=== PATIENT | female | born 1945 | race Caucasian/White ===

== ENCOUNTER 2016-07-07 19:45 | Emergency (ER) | payer BC, OTHER ==
[~2016-07-07] VITALS: Ht 162.6 cm; Wt 60.0 kg
[2016-07-07 20:16] VITALS: BP 129/78; PULSE 81; RESP 16; TEMP 97.7; O2SAT 98
[2016-07-07] MEDS ORDERED: SODIUM CHLORIDE 0.9% FLUSH 10 ML FLUSH IVF PRN (20:30)
[2016-07-07] MEDS ORDERED: SODIUM CHLOR 0.9% 1000 ML INJ 1,000 ML IV ONE (20:30)
[2016-07-07] MEDS ORDERED: OXYC-396 PO (20:40)
[2016-07-07] MEDS ORDERED: OXYM10TA5 PO (20:42)
[2016-07-07 20:51] LABS: AMPHETAMINE, URINE NEG (NEG); BARBITURATES, URINE NEG (NEG); COCAINE, URINE NEG (NEG)
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
[2016-07-07 20:58] LABS: AUTOMATED NEUTROPHIL # 2.9 TH/MM3 (1.8-7.7); BASOPHIL % 0.8 % (0.0-2.0); EOSINOPHIL % 0.6 % (0.0-4.0); HEMATOCRIT 40.2 % (35.0-46.0); HEMO FLAGS DIFF FINAL; LYMPH % 34.4 % (9.0-44.0); LYMPHOCYTE # 1.8 TH/MM3 (1.0-4.8); MEAN CELL VOLUME 90.2 FL (80.0-100.0); MEAN CORPUSCULAR HGB CONC 33.2 % (32.0-36.0); MONO % 10.1 % (0.0-8.0); NEUT % 54.1 % (16.0-70.0); PLATELET COUNT 231 TH/MM3 (150-450); RED BLOOD COUNT 4.46 MIL/MM3 (4.00-5.30); RED CELL DISTRIBUTION WIDTH 12.9 % (11.6-17.2); WHITE BLOOD COUNT 5.3 TH/MM3 (4.0-11.0)
[2016-07-07 21:12] LABS: ACETAMINOPHEN 2.6 MCG/ML (10.0-30.0); ALKALINE PHOSPHATASE 70 U/L (45-117); ALT (GPT) 30 U/L (10-53); ANION GAP 13 MEQ/L (5-15); AST (GOT) 33 U/L (15-37); BICARBONATE 23.5 MEQ/L (21.0-32.0); BLOOD UREA NITROGEN 15 MG/DL (7-18); CHLORIDE 100 MEQ/L (98-107); GLOMERULAR FILTRATION RATE 99 ML/MIN (>89); POTASSIUM 4.1 MEQ/L (3.5-5.1); SODIUM (NA) 136 MEQ/L (136-145); TOTAL BILIRUBIN ADULT 0.4 MG/DL (0.2-1.0)
[2016-07-07 22:20] VITALS: BP 120/76; PULSE 78; RESP 18; TEMP 98.3; O2SAT 97
[2016-07-07] MEDS ORDERED: LORazepam 2 MG/ML VIAL IM ONE (23:45)
[2016-07-08 03:05] VITALS: BP 120/70; PULSE 68; RESP 18; O2SAT 98
--- NOTE | 2016-07-08 03:05 | PD ---
Physical Exam Time Seen by Provider: 03:00 Data Data Last Documented VS Vital Signs Date Time Temp Pulse Resp B/P Pulse Ox O2 Delivery O2 Flow Rate FiO2 07/07/16 22:20 98.3 78 18 120/76 97 Room Air Orders Complete Blood Count With Diff (07/07/16 20:22) Comprehensive Metabolic Panel (07/07/16 20:22) Iv Access Insert/Monitor (07/07/16 20:22) Psych Screen (07/07/16 20:22) Sodium Chloride 0.9% Flush (Ns Flush) (07/07/16 20:30) Drug Screen, Random Urine (07/07/16 20:22) Alcohol (Ethanol) (07/07/16 20:22) Salicylates (Aspirin) (07/07/16 20:22) Tylenol (Acetaminophen) (07/07/16 20:22) Sodium Chlor 0.9% 1000 Ml Inj (Ns 1000 M (07/07/16 20:30) Lorazepam Inj (Ativan Inj) (07/07/16 23:45) Ct Brain W/O Iv Contrast(Rout) (07/08/16 ) Ct Facial Bones W/O Iv Cont (07/08/16 ) Spine, Lumbar - Ltd (Ap & Lat) (07/08/16 ) Ct Cerv Spine W/O Contrast (07/08/16 ) Tetanus/Diphtheria Tox Adult (Tetanus/Di (07/08/16 03:15) Lidocai-Epi 1%-1:100,000 Inj (Xylocaine- (07/08/16 03:15) Apply Cervical Collar (07/08/16 03:02) Labs Laboratory Tests Test 07/07/16 20:30 White Blood Count 5.3 TH/MM3 Red Blood Count 4.46 MIL/MM3 Hemoglobin 13.4 GM/DL Hematocrit 40.2 % Mean Corpuscular Volume 90.2 FL Mean Corpuscular Hemoglobin 30.0 PG Mean Corpuscular Hemoglobin 33.2 % Concent Red Cell Distribution Width 12.9 % Platelet Count 231 TH/MM3 Mean Platelet Volume 9.5 FL Neutrophils (%) (Auto) 54.1 % Lymphocytes (%) (Auto) 34.4 % Monocytes (%) (Auto) 10.1 % Eosinophils (%) (Auto) 0.6 % Basophils (%) (Auto) 0.8 % Neutrophils # (Auto) 2.9 TH/MM3 Lymphocytes # (Auto) 1.8 TH/MM3 Monocytes # (Auto) 0.5 TH/MM3 Eosinophils # (Auto) 0.0 TH/MM3 Basophils # (Auto) 0.0 TH/MM3 CBC Comment DIFF FINAL Differential Comment Sodium Level 136 MEQ/L Potassium Level 4.1 MEQ/L Chloride Level 100 MEQ/L Carbon Dioxide Level 23.5 MEQ/L Anion Gap 13 MEQ/L Blood Urea Nitrogen 15 MG/DL Creatinine 0.60 MG/DL Estimat Glomerular Filtration 99 ML/MIN Rate Random Glucose 91 MG/DL Calcium Level 9.2 MG/DL Total Bilirubin 0.4 MG/DL Aspartate Amino Transf 33 U/L (AST/SGOT) Alanine Aminotransferase 30 U/L (ALT/SGPT) Alkaline Phosphatase 70 U/L Total Protein 7.8 GM/DL Albumin 4.2 GM/DL Salicylates Level LESS THAN 1.7 MG/DL Urine Opiates Screen NEG Acetaminophen Level 2.6 MCG/ML Urine Barbiturates Screen NEG Urine Amphetamines Screen NEG Urine Benzodiazepines Screen NEG Urine Cocaine Screen NEG Urine Cannabinoids Screen NEG Ethyl Alcohol Level 286 MG/DL [facility] Medical Record Reviewed: Yes Supervised Visit with CARROLL: No Narrative Course This is a 70-year-old female who presents under a jaramillo act. She was initially seen by Dr. Huitron and medically cleared. I was called by the nurse because the patient rolled out of bed and hit her head against the ground. I was asked to come and evaluate this patient. The patient is complaining of some lower back pain as well as some neck pain, left-sided facial pain. She has a 2 cm laceration to left eyebrow. She has some ecchymosis over the left maxilla. She is awake and alert and oriented. She is answer questions appropriately. Last tetanus vaccination unknown. A cervical collar has been ordered. CT imaging of the brain, facial bones, cervical spine as well as lumbar spine x- ray had been ordered. The laceration will be repaired with sutures, she verbally consents. CT imaging reveals minimally displaced inferior wall fracture of the left orbit , no extraocular muscle entrapment, comminuted mildly displaced fracture of the left maxillary air cell. Minimally displaced fracture of the nose. Minimally displaced fracture of the left zygomatic arch. The patient was given a copy of her CT report. I discussed these injuries with her. I explained that she will have to follow up with craniofacial surgery next week. It is unclear how long this patient will be here under Jaramillo act for psychiatric evaluation. If she remains for a prolonged period of time then a routine craniofacial surgery consult could be obtained and I discussed this with the psychiatric nurse. The cervical collar was removed. The patient was able to ambulate with assistance to the bathroom. Procedures Procedure Narrative LACERATION LOCATION: Left forehead LENGTH: 2 cm NUMBER OF STITCHES/EMI: 5 REPAIR: The area of the laceration was prepped with Betadine and sterilely draped. The laceration was infiltrated with 1% lidocaine with epinephrine. The wound was copiously irrigated and explored without evidence of foreign body , tendon injury or neurovascular injury. The wound was closed using 6-0 nylon simple interrupted. This was a single layer repair. A sterile dressing was applied. The patient was advised to keep the dressing clean and dry. Patient tolerated the procedure well. Diagnosis Primary Impression: Alcohol intolerance Additional Impressions: Facial laceration Qualified Code: S01.81XA - Facial laceration, initial encounter Facial bones, closed fracture Qualified Code: S02.92XA - Closed fracture of facial bone, unspecified facial bone, initial encounter Referrals: Gilberto Barnhart DDS Additional Instruction: Follow-up with a craniofacial surgeon such as Dr. Barnhart next week, call to make an appointment. Apply ice packs to the affected area several times a day 15 minutes at a time. Avoid blowing nose, drinking through straws, avoid closed mouth sneezing. Wash the forehead wound gently with soap and water and apply antibiotic cream daily. Return in approximately 5 days for suture removal. Yahir Gagnon Jul 08, 2016 03:05
[2016-07-08] MEDS ORDERED: LIDOCAINE 1%/EPINEPHrine 1:100,000 SOLN 20 ML VIAL INFIL ONE (03:15)
[2016-07-08] MEDS ORDERED: TETANUS/DIPHTHERIA TOXOID ADULT 0.5 ML VIAL IM ONE (03:15)
--- NOTE | 2016-07-08 04:03 | RADRPT ---
EXAM DATE/TIME: 07/08/2016 03:34 [facility] COMPARISON: No previous studies available for comparison. INDICATIONS : Lower back pain after falling out of bed today. MEDICAL HISTORY : None. SURGICAL HISTORY : None. ENCOUNTER: Initial ACUITY: 1 day PAIN SCORE: 8/10 LOCATION: L-Spine FINDINGS: Moderate dextroconvex curvature seen of the lumbar spine centered around L3. No subluxation demonstra kamran. No cortical break or trabecular disruption seen. Lumbar vertebral body heights within normal limits. There is moderate to severe disc space narrowing at essentially all levels. There is degenerative vacuum phenomena at L3/L4, L4/L5 and L5/S1. Moderate to severe facet osteoarthritis throughout, especially on the left at L2/L3 and L3/L4, bilateral L4/L 5 and L5/S1. CONCLUSION: No fracture or subluxation of the lumbar spine. Scoliosis and degenerative changes as above. Keaton Gonzalez MD on July 08, 2016 at 4:01 Board Certified Radiologist. This report was verified electronically.
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
[2016-07-08 08:04] VITALS: BP 156/86; PULSE 102; RESP 16; O2SAT 96
[2016-07-08] MEDS ORDERED: ACETAMINOPHEN 500 MG CPLT PO ONE (10:15)
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
--- NOTE | 2016-07-08 12:11 | RADRPT ---
EXAM DATE/TIME: 07/08/2016 11:45 [facility] COMPARISON: No previous studies available for comparison. INDICATIONS : Pain in proximal humerus after fall from stretcher. MEDICAL HISTORY : None. SURGICAL HISTORY : None. ENCOUNTER: Initial ACUITY: 1 day PAIN SCORE: 10/10 LOCATION: Right Humerus FINDINGS: Two view examination of the right humerus demonstrates no evidence of fracture or dislocation. Bony mineralization is normal. The soft tissue structures are intact. CONCLUSION: Negative trauma study with no evidence of fracture. Barak Brian MD on July 08, 2016 at 12:08 Board Certified Radiologist. This report was verified electronically.
[2016-07-08 12:50] VITALS: BP 132/56
== END 2016-07-08 12:56 | disposition home or self-care (01) ==
LOC: NEPD 19:45
DX: F10.120 Alcohol abuse with intoxication, uncomplicated (principal); T76.91XA Unspecified adult maltreatment, suspected, initial encounter; R45.851 Suicidal ideations; S02.40DA Maxillary fracture, left side, initial encounter for closed fracture; S02.2XXA Fracture of nasal bones, initial encounter for closed fracture; S02.82XA Fracture of other specified skull and facial bones, left side, initial encounter for closed fracture; S01.112A Laceration without foreign body of left eyelid and periocular area, initial encounter; Y92.532 Urgent care center as the place of occurrence of the external cause; Y30.XXXA Falling, jumping or pushed from a high place, undetermined intent, initial encounter; Y93.84 Activity, sleeping; Z23 Encounter for immunization; Y90.7 Blood alcohol level of 200-239 mg/100 ml
CPT/HCPCS: 12011; 70450; 70486; 72100; 72125; 73060; 80053; 80307; 85025; 90471; 90714; 96360; 96361; 96372; 99285; J2060; J7030